=== PATIENT | male | born 1980 | race Caucasian/White ===

== ENCOUNTER 2018-05-28 22:14 | Emergency (ER) | payer OTHER, MEDICARE ==
--- NOTE | 2018-05-28 22:28 | EKG REPORT ---
SEVERITY:- ABNORMAL ECG - SINUS RHYTHM NONSPECIFIC T ABNORMALITIES, LATERAL LEADS : Confirmed by: Haider Cabral MD 28-May-2018 22:27:59
[2018-05-28] MEDS ORDERED: ASPIRIN 81 MG TABLET, CHEWABLE PO ONE (22:29)
[2018-05-28] MEDS ORDERED: MORPHINE SULFATE 10 MG/ML INJ IV ONE (22:30)
[2018-05-28 22:37] LABS: ABSOLUTE BASOPHILS # (AUTO) 0.1 10^3/uL (0.0-0.2); ABSOLUTE EOSINOPHILS # (AUTO) 0.2 10^3/uL (0.0-0.6); ABSOLUTE LYMPHOCYTES (AUTO) 4.5 10^3/uL (0.5-4.7); ABSOLUTE MONOCYTES (AUTO) 1.2 10^3/uL (0.1-1.4); ABSOLUTE NEUT (AUTO) 6.5 10^3/uL (1.7-8.2); BASOPHILS % (AUTO) 0.5 % (0-2); EOSINOPHILS % (AUTO) 1.4 % (0-6); HEMATOCRIT 50.3 % (37.9-51.0); HEMOGLOBIN 17.2 g/dL (13.5-17.0); LYMPHOCYTES % (AUTO) 36.4 % (13-45); MEAN CORPUSCULAR HEMOGLOBIN 31.6 pg (27.0-33.4); MEAN CORPUSCULAR HGB CONC 34.2 g/dL (32.0-36.0); MEAN CORPUSCULAR VOLUME 92 fl (80-97); MONOCYTES % (AUTO) 9.3 % (3-13); PLATELET COUNT 334 10^3/uL (150-450); RED BLOOD COUNT 5.45 10^6/uL (4.35-5.55); RED CELL DISTRIBUTION WIDTH 13.2 % (11.5-14.0); SEGMENTED NEUTROPHILS % (AUTO) 52.4 % (42-78); TOTAL CELLS COUNTED % (AUTO) 100 %; WHITE BLOOD COUNT 12.5 10^3/uL (4.0-10.5)
--- NOTE | 2018-05-28 22:38 | ER Document Report ---
ED General - General Chief Complaint: Overdose Stated Complaint: POSSIBLE OVERDOSE Time Seen by Provider: 05/28/18 22:18 Primary Care Provider: SHANNON EDWARDS MD [Primary Care Provider] - Follow up as needed Mode of Arrival: Medic Information source: Patient Notes: 38-year-old male brought to the emergency department by EMS after being found unresponsive by his friend. Patient went to [employer] with his friend and when they returned home he was found asleep by his in the vehicle. The friend got him out of the vehicle and put him into bed. He then noticed that the patient appeared cyanotic, had agonal respirations and he could not find a pulse. The friend started CPR. EMS said that they arrived 4 minutes later. When they arrived they noted bounding pulses, agonal respirations, and central cyanosis. 8mg of narcan given and patient became responsive. Only complaint is chest pain. Located in the center of the chest. No radiation. No alleviating or exacerbating factors. He denies taking pain medication, heroin, cocaine, marijuana, meth. He denies history of hypertension, hyperlipidemia, diabetes, CAD, family history of coronary artery disease. He also denies any recent travel, recent surgeries, calf pain, calf swelling, history of DVT or PE. Patient states that he has a history of traumatic brain injury, chronic shoulder and back pain. He the only medication that he admits to being on his Seroquel. - HPI Onset: Just prior to arrival Quality of pain: Achy Associated symptoms: None Exacerbated by: Denies Relieved by: Denies Similar symptoms previously: No Recently seen / treated by doctor: No - Related Data Allergies/Adverse Reactions: No Known Allergies Allergy (Verified 05/28/18 22:32) Past Medical History - General Information source: Patient - Social History Smoking Status: Never Smoker Family History: Reviewed & Not Pertinent Pulmonary Medical History: Reports: Hx Asthma, Hx Bronchitis, Hx COPD Musculoskeletal Medical History: Reports Hx Arthritis Psychiatric Medical History: Denies: Hx Depression Past Surgical History: Reports: Hx Orthopedic Surgery - L shoulder x 2 - Immunizations Hx Diphtheria, Pertussis, Tetanus Vaccination: Yes Review of Systems - Review of Systems Constitutional: No symptoms reported EENT: No symptoms reported Cardiovascular: Chest pain Respiratory: No symptoms reported Gastrointestinal: No symptoms reported Genitourinary: No symptoms reported Male Genitourinary: No symptoms reported Musculoskeletal: No symptoms reported Skin: No symptoms reported Hematologic/Lymphatic: No symptoms reported Neurological/Psychological: No symptoms reported -: Yes All other systems reviewed and negative Physical Exam - Vital signs Vitals: Temp Pulse Resp BP Pulse Ox 97.5 F 92 16 166/84 H 88 L 05/28/18 22:14 05/28/18 22:14 05/28/18 22:14 05/28/18 22:14 05/28/18 22:14 - Notes Notes: PHYSICAL EXAMINATION: GENERAL: Awake, alert orientated x 3. no acute distress. HEAD: Atraumatic, normocephalic. EYES: Pupils equal round and reactive to light, extraocular movements intact, sclera anicteric, conjunctiva are normal. ENT: Nares patent, oropharynx clear without exudates. Moist mucous membranes. NECK: Normal range of motion, supple without lymphadenopathy LUNGS: Breath sounds clear to auscultation bilaterally and equal. No wheezes rales or rhonchi. HEART: Regular rate and rhythm without murmurs. Anterior chest wall tenderness to palpation. ABDOMEN: Soft, nontender, nondistended abdomen. No guarding, no rebound. No masses appreciated. Musculoskeletal: Normal range of motion, no pitting or edema. No cyanosis. NEUROLOGICAL: Cranial nerves grossly intact. Normal speech, normal gait. Normal sensory, motor exams PSYCH: Normal mood, normal affect. SKIN: Warm, Dry, normal turgor, no rashes or lesions noted. Course - Re-evaluation Re-evalutation: 05/28/18 22:45 EKG: Ventricular rate 97, SD interval 156, QRS duration 90, QTc 422, sinus rhythm. Minimal questionable ST segment elevation in leads V4, V5. No reciprocal changes. 05/29/18 03:09 Labs and imaging obtained. CXR is unremarkable. CTA chest did not show PE or dissection. Troponin increasing but still negative. EKG repeated. Questionable ST segment elevation in lateral leads. I contacted Dr. Jane. He feels the EKG is abnormal. Recommends transfer. I contacted [facility] for transfer. I spoke with Dr. Bruno. He does not feel the EKG shows STEMI. Will transfer to [facility] and admit to hospitalist. I spoke with Dr. Pantoja, hospitalist. He accepts transfer. Patient currently stable. 05/29/18 05:52 3rd troponin ordered but has not been drawn yet. Patient resting comfortably in the room. No complaints. Patient awaiting transport to [facility]. - Vital Signs Vital signs: Temp Pulse Resp BP Pulse Ox 97 F L 92 14 133/76 H 96 05/28/18 23:01 05/28/18 22:14 05/29/18 05:01 05/29/18 05:01 05/29/18 03:01 - Laboratory Result Diagrams: 05/28/18 22:18 05/28/18 22:18 Laboratory results interpreted by me: 05/28/18 05/28/18 05/29/18 22:18 22:18 02:37 WBC 12.5 H Hgb 17.2 H Creatinine 1.70 H Est GFR ( Amer) 55 L Est GFR (Non-Af Amer) 46 L Glucose 164 H Total Bilirubin 1.7 H AST 82 H ALT 76 H Urine Protein 30 H Urine Ketones TRACE H Urine Blood SMALL H Discharge - Discharge Clinical Impression: Cardiopulmonary arrest Chest pain Qualifiers: Chest pain type: unspecified Qualified Code(s): R07.9 - Chest pain, unspecified Condition: Stable Disposition: [facility] Referrals: SHANNON EDWARDS MD [Primary Care Provider] - Follow up as needed
[2018-05-28 22:55] LABS: ALANINE AMINOTRANSFERASE 76 U/L (21-72); ALBUMIN 4.6 g/dL (3.5-5.0); ALKALINE PHOSPHATASE 92 U/L (38-126); ANION GAP 14 (5-19); ASPARTATE AMINO TRANSFERASE 82 U/L (17-59); BILIRUBIN,DIRECT 0.3 mg/dL (0.0-0.4); BILIRUBIN,TOTAL 1.7 mg/dL (0.2-1.3); BLOOD UREA NITROGEN 19 mg/dL (7-20); CALCIUM 9.6 mg/dL (8.4-10.2); CARBON DIOXIDE 29 mmol/L (22-30); CHLORIDE 99 mmol/L (98-107); GLUCOSE 164 mg/dL (75-110); POTASSIUM 4.6 mmol/L (3.6-5.0); SODIUM 141.5 mmol/L (137-145); TOTAL PROTEIN 7.7 g/dL (6.3-8.2)
[2018-05-28] MEDS ORDERED: NORMAL SALINE 1000 ML 1,000 ML IV ONE (23:08)
--- NOTE | 2018-05-28 23:08 | RADIOLOGY REPORT (SQ) ---
EXAM DESCRIPTION: XR CHEST 1 VIEW COMPLETED DATE/TME: 05/28/2018 22:29 CLINICAL HISTORY: 38 years, Male, chest pain COMPARISON: 03/12/2013 chest NUMBER OF VIEWS: 1 TECHNIQUE: Portable chest LIMITATIONS: None. FINDINGS: The heart size is normal. Lungs are clear. No pneumothorax IMPRESSION: Negative chest copyright 2010 [employer]- All Rights Reserved
--- NOTE | 2018-05-29 00:05 | RADIOLOGY REPORT (SQ) ---
EXAM DESCRIPTION: CT CHEST ANGIOGRAPHY WITHOUT THEN WITH IV CONTRAST COMPLETED DATE/TME: 05/28/2018 23:08 CLINICAL HISTORY: 38 years, Male, chest pain, unresponsive. COMPARISON: None. TECHNIQUE: [id number] Images stored on PACS. All CT scanners at this facility use dose modulation, iterative reconstruction, and/or weight based dosing when appropriate to reduce radiation dose to as low as reasonably achievable (ALARA). Axial CTA images were obtained with coronal and sagittal MIPS reconstructions [facility]: Dose Right [facility]: CareDose [facility]: Dose Right [facility]: Teradose 4D [facility]: [employer] LIMITATIONS: None. FINDINGS: Suboptimal contrast bolus significantly limits the exam. No large or central pulmonary embolus. Evaluation of the distal branches is nondiagnostic. Negative for thoracic aortic aneurysm or dissection. The heart and pericardium are unremarkable. Limited evaluation of upper abdomen unremarkable. No mediastinal or hilar adenopathy. Osseous structures are grossly intact. No pneumothorax. Groundglass opacities bilaterally, most pronounced in the upper lobes consistent with pneumonitis. No effusion. No pneumothorax IMPRESSION: Suboptimal contrast bolus. No large or central pulmonary embolus. Negative for thoracic aortic aneurysm or dissection. Groundglass opacities bilaterally consistent with pneumonitis TECHNICAL DOCUMENTATION: Quality ID # [id number]: Final reports with documentation of one or more dose reduction techniques (e.g., Automated exposure control, adjustment of the mA and/or kV according to patient size, use of iterative reconstruction technique) copyright 2011 [employer]- All Rights Reserved
[2018-05-29 03:01] LABS: APPEARANCE,URINE SLIGHTLY-CLOUDY; BILIRUBIN,URINE NEGATIVE (NEGATIVE); COLOR,URINE YELLOW; GLUCOSE, URINE NEGATIVE (NEGATIVE); KETONES,URINE TRACE mg/dL (NEGATIVE); LEUKOCYTE ESTERASE,URINE NEGATIVE (NEGATIVE); NITRITE,URINE NEGATIVE (NEGATIVE); PROTEIN,URINE 30 mg/dL (NEGATIVE); UROBILINOGEN,URINE NEGATIVE mg/dL (<2.0)
[2018-05-29 04:21] LABS: URINE AMPHETAMINES SCREEN UNCONFIRMED POSITIVE; URINE BARBITURATES SCREEN NEGATIVE; URINE BENZODIAZEPINES SCREEN NEGATIVE; URINE COCAINE SCREEN UNCONFIRMED POSITIVE; URINE MARIJUANA (THC) SCREEN NEGATIVE; URINE METHADONE SCREEN NEGATIVE; URINE PHENCYCLIDINE SCREEN NEGATIVE
--- NOTE | 2018-05-29 06:32 | EKG REPORT ---
SEVERITY:- ABNORMAL ECG - SINUS RHYTHM CONSIDER LEFT VENTRICULAR HYPERTROPHY BORDERLINE T ABNORMALITIES, INFERIOR LEADS : Confirmed by: Haider Cabral MD 29-May-2018 06:31:45
--- NOTE | 2018-05-29 06:33 | EKG REPORT ---
SEVERITY:- DEFECTIVE ECG - SINUS RHYTHM NONSPECIFIC T ABNORMALITIES, LATERAL LEADS MINIMAL ST ELEVATION, ANTERIOR LEADS NOTE = TECHNICAL ERROR : ONLY HALF STANDARDIZATION : Confirmed by: Haider Cabral MD 29-May-2018 06:33:25
--- NOTE | 2018-05-29 06:35 | EKG REPORT ---
SEVERITY:- ABNORMAL ECG - SINUS RHYTHM NONSPECIFIC T ABNORMALITIES, LATERAL LEADS MINIMAL ST ELEVATION, ANTERIOR LEADS NEW CHANGES COMPARED TO 01/08/14 EKG : Confirmed by: Haider Cabral MD 29-May-2018 06:34:46
--- NOTE | 2018-05-29 07:52 | ER Document Report ---
Doctor's Note Notes: 05/29/18 07:51 Patient seen and examined. He continues to complain of chest pain that is definitely reproducible. He denies any difficulty breathing at this time. Vital signs are reviewed. He is mildly hypertensive at 144/80, otherwise his heart rate is in the 80s. He is oxygenating well, no apparent respiratory distr ess. Heart is regular rate and rhythm, lungs are clear to auscultation bilaterally. ALS crew is here to transfer the patient to [facility], he will be transferred in stable condition. 05/29/18 07:52
[2018-05-29] MEDS ORDERED: ACETAMINOPHEN 325 MG TABLET PO ONE (07:58)
[2018-05-29 08:55] VITALS: BP 144/80
== END 2018-05-29 07:51 | disposition short-term general hospital (02) ==
LOC: ER 22:14
DX: I46.9 Cardiac arrest, cause unspecified (principal); R07.9 Chest pain, unspecified; J44.9 Chronic obstructive pulmonary disease, unspecified; Z79.899 Other long term (current) drug therapy; Z87.820 Personal history of traumatic brain injury
CPT/HCPCS: 93005 ×2; 99285; 96360; 36415; 80307 ×2; 85025; 80053; 81001; 84484; 71045; 71275; 93010 ×2; J7030